=== PATIENT | female | born 1975 | race Caucasian/White ===

== ENCOUNTER 2016-04-10 16:10 | Emergency (ER) | payer SELFPAY ==
[2016-04-10] MEDS ORDERED: HYDROCODONE/ACETAMINOPHEN 5-325 MG TABLET PO ONE (16:26)
--- NOTE | 2016-04-10 16:26 | ER Document Report ---
ED Medical Screen (RME) - General Stated Complaint: SHOULDER INJURY Mode of Arrival: Wheelchair Information source: Patient Notes: Patient reports that a chicken coop fell on her hitting her chest and then her feet. hx: Arthritis I have greeted and performed a rapid initial assessment of this patient. A comprehensive ED assessment and evaluation of the patient, analysis of test results and completion of the medical decision making process will be conducted by additional ED providers. - Related Data Allergies/Adverse Reactions: NSAIDS (Non-Steroidal Anti-Inflamma Allergy (Verified 04/10/16 16:23) Physical Exam - Skin Location of irregularity: Other - Abrasion to left clavicle Irregularity with: Tenderness
--- NOTE | 2016-04-10 19:24 | ER Document Report ---
HPI - HPI Patient complains to provider of: left clavical and Foot pain Onset: This morning Severity: Severe Pain Level: 5 Context: Patient presents with complaints of left clavicle and left foot pain after chicken cooked fell on her. She denies change in LOC. She complains of pain with touch and movement. Associated Symptoms: None Exacerbated by: Movement Relieved by: Denies Similar symptoms previously: No Recently seen / treated by doctor: No - DERM Skin Color: Normal Past Medical History - General Information source: Patient - Social History Smoking Status: Current Every Day Smoker Chew tobacco use (# tins/day): No Frequency of alcohol use: None Drug Abuse: None Lives with: Family Family History: None Patient has suicidal ideation: No Patient has homicidal ideation: No - Medical History Medical History: Negative Renal/ Medical History: Denies: Hx Peritoneal Dialysis Surgical Hx: Negative Vertical Provider Document - CONSTITUTIONAL Agree With Documented VS: Yes Exam Limitations: No Limitations General Appearance: WD/WN, Mild Distress - Winces when moving left shoulder - INFECTION CONTROL TRAVEL OUTSIDE OF THE [place] IN LAST 30 DAYS: No - HEENT HEENT: Atraumatic, Normocephalic - NECK Neck: Normal Inspection, Supple. negative: Lymphadenopathy-Left, Lymphadenopathy-Right - RESPIRATORY Respiratory: Breath Sounds Normal, No Respiratory Distress, Other - Left clavicle area with abrasion. Tender to palpation no obvious deformity. No open wounds O2 Sat by Pulse Oximetry: 98 - CARDIOVASCULAR Cardiovascular: Regular Rate - GI/ABDOMEN Gastrointestinal: Abdomen Soft, Abdomen Non-Tender - MUSCULOSKELETAL/EXTREMETIES Musculoskeletal/Extremeties: MAEW, FROM, Tender - Left foot dorsal tender to palpation no ecchymosis no swelling no obvious deformity good pedal pulse - NEURO Level of Consciousness: Awake, Alert, Appropriate Motor/Sensory: No Motor Deficit - DERM Integumentary: Warm, Dry Adult Front & Back Diagram: 1 - Abrasion complains of pain 2 - Complaints of pain no obvious deformity no swelling no erythema no ecchymosis good pedal pulse Course - Re-evaluation Re-evalutation: 04/10/16 Patient instructed on plan of care. Plan to give her [place] [employer] and patient requests Percocet prescription. Patient also instructed on at rest ice monitor the site for signs of infection. She verbalized understanding to all instructions. - Vital Signs Vital signs: Temp Pulse Resp BP Pulse Ox 98.2 F 68 20 128/72 H 98 04/10/16 16:25 04/10/16 16:25 04/10/16 16:25 04/10/16 16:25 04/10/16 16:25 - Diagnostic Test Radiology reviewed: Image reviewed, Reports reviewed - IMPRESSION: NEGATIVE STUDY OF THE LEFT CLAVICLE. NO RADIOGRAPHIC EVIDENCE OF ACUTE INJURY IMPRESSION : NEGATIVE STUDY OF THE RIGHT AND LEFT FEET. NO RADIOGRAPHIC EVIDENCE OF ACUTE INJURY. Discharge - Discharge Clinical Impression: Elevated blood pressure reading Contusion of left clavicle Qualifiers: Encounter type: initial encounter Qualified Code(s): S40.012A - Contusion of left shoulder, initial encounter Contusion of left foot Qualifiers: Encounter type: initial encounter Qualified Code(s): S90.32XA - Contusion of left foot, initial encounter Condition: Stable Disposition: HOME, SELF-CARE Instructions: Contusion ([facility]), Oral Narcotic Medication ([facility]) Additional Instructions: *You have been evaluated for left clavicle pain and foot pain *Monitor your blood pressure. Your blood pressure was elevated today. This may be because you were anxious, in pain or because you need medication. It is important to follow up with your primary care provider for full evaluation. *Rest/Ice/Elevate *Follow up with a primary care provider this week for recheck *Take medication as prescribed *Return to ED for worsening condition, changes, needs Prescriptions: Oxycodone HCl/Acetaminophen [Percocet 5-325 mg Tablet] 1 tab PO ASDIR PRN #10 tablet PRN Reason: Forms: Elevated Blood Pressure
[2016-04-10 19:55] VITALS: BP 122/68
== END 2016-04-10 19:56 | disposition home or self-care (01) ==
LOC: ER 16:10
DX: S40.012A Contusion of left shoulder, initial encounter (principal); S90.32XA Contusion of left foot, initial encounter; R03.0 Elevated blood-pressure reading, without diagnosis of hypertension; F17.200 Nicotine dependence, unspecified, uncomplicated; W20.8XXA Other cause of strike by thrown, projected or falling object, initial encounter
CPT/HCPCS: 99283

== ENCOUNTER 2016-06-25 14:48 | Emergency (ER) | payer MEDICAID ==
[2016-06-25 15:08] VITALS: BP 147/79
[2016-06-25] MEDS ORDERED: NORMAL SALINE 500 ML IV ONE (16:26)
--- NOTE | 2016-06-25 16:33 | ER Document Report ---
ED General - General Mode of Arrival: Medic Information source: Patient TRAVEL OUTSIDE OF THE [place] IN LAST 30 DAYS: No - HPI Patient complains to provider of: Multiple Complaints Onset: Other - 1 Week Ago Onset/Duration: Gradual, Worse Associated symptoms: Other - See Narrative <DIVYA DHILLON - Last Filed: 06/25/16 16:26> <JARAD MEREDITH - Last Filed: 06/25/16 18:47> - General Chief Complaint: Other Stated Complaint: NO BOWEL MOVEMENT Notes: Patient is a 41-year-old female presenting to the emergency department for several chief complaints including her "bones feel hollow" and "blood is burning.". Patient states that she has been sick for years, and she is weaning off of her Oxycodone 80mg daily and Xanax , now she is taking Oxycodone 10 mg 3 times daily. Patient was recently started on clonazepam to replace her Xanax. Patient complains of pressure behind her eyes and that she feels like she is losing her vision. She also states that she's been having blackouts, memory loss, shaking, "neck stretching" like her head is being suctioned up, and she states that her brain shuts off when she eats and drinks. Patient states that she cannot have Suboxone because she has real medical issues. Patient also states "I am fighting every demon because God put plants on this Earth for us." And "OOh! my blood is burning! I think my blood pressure must be rising!" (DIVYA DHILLON) - Related Data Allergies/Adverse Reactions: NSAIDS (Non-Steroidal Anti-Inflamma Allergy (Verified 06/25/16 14:57) Past Medical History - General Information source: Patient - Social History Smoking Status: Current Every Day Smoker Chew tobacco use (# tins/day): No Frequency of alcohol use: None Drug Abuse: None Family History: Reviewed & Not Pertinent Pulmonary Medical History: Reports: Hx COPD Renal/ Medical History: Denies: Hx Peritoneal Dialysis Past Surgical History: Reports: Hx Hysterectomy <DIVYA DHILLON - Last Filed: 06/25/16 16:26> Review of Systems - Review of Systems Constitutional: See HPI, Malaise, Other - Shaky EENT: See HPI, Eye pain, Blurred vision Cardiovascular: See HPI, Lightheaded Respiratory: No symptoms reported Gastrointestinal: See HPI, Constipation, Poor appetite, Poor fluid intake Genitourinary: No symptoms reported Female Genitourinary: No symptoms reported Musculoskeletal: See HPI, Other - "Neck Stretching" Skin: No symptoms reported Hematologic/Lymphatic: See HPI, Other - "Blood Burning" Neurological/Psychological: See HPI, Other - Memory loss -: Yes All other systems reviewed and negative <DIVYA DHILLON - Last Filed: 06/25/16 16:26> Course <DIVYA DHILLON - Last Filed: 06/25/16 16:26> - Laboratory Result Diagrams: 06/25/16 15:15 06/25/16 15:15 <JARAD MEREDITH - Last Filed: 06/25/16 18:47> - Re-evaluation Re-evalutation: 06/25/16 18:38 I spent a long time discussing results per normal and abnormal with the patient. She understands she must follow-up regarding the hematuria. She is concerned about some of the swallowing discomfort she has had so I recommended she see her PCP to get ENT referral for nasopharyngoscopy. I suspect her coming down off her medications from such a large amount of narcotics and benzos this caused her some withdrawal-type symptoms. I have asked her to talk with her doctor regarding this. 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 To prevent further withdrawal issues or withdrawal seizures, I will prescribe enough to get her through to Monday. (JARAD MEREDITH) - Vital Signs Vital signs: Temp Pulse Resp BP Pulse Ox 99.0 F 97 20 147/79 H 99 06/25/16 14:51 06/25/16 14:51 06/25/16 14:51 06/25/16 14:51 06/25/16 14:51 - Laboratory Laboratory results interpreted by me: 06/25/16 06/25/16 06/25/16 15:15 15:15 15:15 WBC 14.3 H RBC 5.97 H Hgb 18.0 H Hct 53.8 H Absolute Neutrophils 10.1 H Magnesium 2.4 H Urine Blood MODERATE H Discharge <DIVYA DHILLON - Last Filed: 06/25/16 16:26> <JARAD MEREDITH - Last Filed: 06/25/16 18:47> - Discharge Clinical Impression: Headache, Generalized pain, Odynophagia Condition: Good Disposition: HOME, SELF-CARE Additional Instructions: Return for emergency or concern. Prescriptions: Clonazepam [Klonopin 1 mg Tablet] 1 mg PO TID PRN #5 tablet PRN Reason: Anxiety Forms: Elevated Blood Pressure, Smoking Cessation Education Referrals: STEFANY MOSQUERA MD [Primary Care Provider] - 06/27/16 Scribe Attestation: 06/25/16 18:46 I personally performed the services described in the documentation, reviewed and edited the documentation which was dictated to the scribe in my presence, and it accurately records my words and actions. (JARAD MEREDITH) Scribe Documentation - Scribe Written by Helga:: Divya Dhillon 06/25/2016 1626 acting as scribe for :: Ron <DIVYA DHILLON - Last Filed: 06/25/16 16:26>
[2016-06-25 16:57] LABS: APPEARANCE,URINE CLEAR; BILIRUBIN,URINE NEGATIVE (NEGATIVE); GLUCOSE, URINE NEGATIVE (NEGATIVE); KETONES,URINE NEGATIVE (NEGATIVE); LEUKOCYTE ESTERASE,URINE NEGATIVE (NEGATIVE); NITRITE,URINE NEGATIVE (NEGATIVE); PROTEIN,URINE NEGATIVE (NEGATIVE); URINE SPECIFIC GRAVITY 1.005; UROBILINOGEN,URINE NEGATIVE mg/dL (<2.0)
[2016-06-25 17:09] LABS: URINE BARBITURATES SCREEN NEGATIVE; URINE METHADONE SCREEN NEGATIVE; URINE OPIATES LOW NEGATIVE; URINE PHENCYCLIDINE SCREEN NEGATIVE
[2016-06-25 17:23] LABS: ABSOLUTE BASOPHILS # (AUTO) 0.1 10^3/uL (0.0-0.2); ABSOLUTE EOSINOPHILS # (AUTO) 0.1 10^3/uL (0.0-0.6); ABSOLUTE NEUT (AUTO) 10.1 10^3/uL (1.7-8.2); BASOPHILS % (AUTO) 0.5 % (0-2); HEMATOCRIT 53.8 % (36.0-47.0); HGB HCT DIFFERENCE 0.2; MEAN CORPUSCULAR HEMOGLOBIN 30.1 pg (27.0-33.4); MEAN CORPUSCULAR HGB CONC 33.4 g/dL (32.0-36.0); MEAN CORPUSCULAR VOLUME 90 fl (80-97); MONOCYTES % (AUTO) 7.1 % (3-13); RED BLOOD COUNT 5.97 10^6/uL (3.72-5.28); RED CELL DISTRIBUTION WIDTH 13.3 % (11.5-14.0); SEGMENTED NEUTROPHILS % (AUTO) 70.4 % (42-78); WHITE BLOOD COUNT 14.3 10^3/uL (4.0-10.5)
[2016-06-25 17:29] LABS: ALANINE AMINOTRANSFERASE 32 U/L (9-52); ALBUMIN 4.7 g/dL (3.5-5.0); ALKALINE PHOSPHATASE 89 U/L (38-126); ANION GAP 16 (5-19); ASPARTATE AMINO TRANSFERASE 22 U/L (14-36); BILIRUBIN,TOTAL 0.6 mg/dL (0.2-1.3); BLOOD UREA NITROGEN 11 mg/dL (7-20); CALCIUM 9.7 mg/dL (8.4-10.2); CARBON DIOXIDE 25 mmol/L (22-30); CHLORIDE 101 mmol/L (98-107); CREATININE RESULT 0.87 mg/dL (0.52-1.25); GLUCOSE 90 mg/dL (75-110); POTASSIUM 4.6 mmol/L (3.6-5.0); SODIUM 141.7 mmol/L (137-145)
[2016-06-25 17:30] LABS: BILIRUBIN,DIRECT 0.3 mg/dL (0.0-0.4); CREATINE KINASE 47 U/L (30-135); MAGNESIUM 2.4 mg/dL (1.6-2.3); TOTAL PROTEIN 7.7 g/dL (6.3-8.2)
[2016-06-25] MEDS ORDERED: OXYCODONE-ACETAMINOPHEN 5-325 MG TABLET PO ONE (18:34)
--- NOTE | 2016-06-26 17:01 | EKG REPORT ---
SEVERITY:- OTHERWISE NORMAL ECG - SINUS RHYTHM BORDERLINE LEFT AXIS DEVIATION : Confirmed by: Stephany Marc MD 26-Jun-2016 17:00:43
== END 2016-06-25 18:40 | disposition home or self-care (01) ==
LOC: ER 14:48
DX: R51 Headache (principal); R52 Pain, unspecified; R13.10 Dysphagia, unspecified; Z79.899 Other long term (current) drug therapy; F17.200 Nicotine dependence, unspecified, uncomplicated
CPT/HCPCS: 93005; 99284; 96360; 36415; 82550; 83735; 84443; 85025; 81025; 80053; 81001; 84484; 80307; 71020; 70450; 93010; J7040

== ENCOUNTER 2016-11-23 15:35 | Emergency (ER) | payer SELFPAY ==
[2016-11-23] MEDS ORDERED: OXYCODONE-ACETAMINOPHEN 5-325 MG TABLET PO ONE (18:20)
[2016-11-23 18:32] LABS: ABSOLUTE BASOPHILS # (AUTO) 0.1 10^3/uL (0.0-0.2); ABSOLUTE EOSINOPHILS # (AUTO) 0.1 10^3/uL (0.0-0.6); ABSOLUTE LYMPHOCYTES (AUTO) 3.3 10^3/uL (0.5-4.7); ABSOLUTE MONOCYTES (AUTO) 1.2 10^3/uL (0.1-1.4); ABSOLUTE NEUT (AUTO) 8.9 10^3/uL (1.7-8.2); BASOPHILS % (AUTO) 0.5 % (0-2); EOSINOPHILS % (AUTO) 0.5 % (0-6); HEMATOCRIT 51.4 % (36.0-47.0); HEMOGLOBIN 17.9 g/dL (12.0-15.5); HGB HCT DIFFERENCE 2.3; LYMPHOCYTES % (AUTO) 24.6 % (13-45); MEAN CORPUSCULAR HEMOGLOBIN 31.2 pg (27.0-33.4); MEAN CORPUSCULAR HGB CONC 34.8 g/dL (32.0-36.0); MEAN CORPUSCULAR VOLUME 90 fl (80-97); MONOCYTES % (AUTO) 8.5 % (3-13); RED BLOOD COUNT 5.72 10^6/uL (3.72-5.28); RED CELL DISTRIBUTION WIDTH 13.4 % (11.5-14.0); SEGMENTED NEUTROPHILS % (AUTO) 65.9 % (42-78); WHITE BLOOD COUNT 13.5 10^3/uL (4.0-10.5)
[2016-11-23 18:43] LABS: APPEARANCE,URINE CLEAR; BILIRUBIN,URINE NEGATIVE (NEGATIVE); GLUCOSE, URINE NEGATIVE (NEGATIVE); KETONES,URINE NEGATIVE (NEGATIVE); LEUKOCYTE ESTERASE,URINE NEGATIVE (NEGATIVE); NITRITE,URINE NEGATIVE (NEGATIVE); PROTEIN,URINE NEGATIVE (NEGATIVE); URINE SPECIFIC GRAVITY 1.004; UROBILINOGEN,URINE NEGATIVE mg/dL (<2.0)
[2016-11-23 18:45] LABS: ALANINE AMINOTRANSFERASE 31 U/L (9-52); ALBUMIN 4.6 g/dL (3.5-5.0); ALKALINE PHOSPHATASE 80 U/L (38-126); ANION GAP 12 (5-19); ASPARTATE AMINO TRANSFERASE 17 U/L (14-36); BILIRUBIN,DIRECT 0.4 mg/dL (0.0-0.4); BILIRUBIN,TOTAL 0.7 mg/dL (0.2-1.3); BLOOD UREA NITROGEN 11 mg/dL (7-20); CALCIUM 9.9 mg/dL (8.4-10.2); CARBON DIOXIDE 28 mmol/L (22-30); CHLORIDE 98 mmol/L (98-107); CREATININE RESULT 0.69 mg/dL (0.52-1.25); GLUCOSE 77 mg/dL (75-110); POTASSIUM 4.2 mmol/L (3.6-5.0); SODIUM 138.3 mmol/L (137-145); TOTAL PROTEIN 7.6 g/dL (6.3-8.2)
--- NOTE | 2016-11-23 18:55 | ER Document Report ---
ED General - General Chief Complaint: Neck Pain >24hrs old Stated Complaint: NECK PAIN Time Seen by Provider: 11/23/16 17:40 Mode of Arrival: Ambulatory Information source: Patient Notes: Patient has multiple complaints. She complains of not feeling well as well as feeling weak. She also complains of left neck pain. She complains of abdominal pain. She also has nausea. She also states that her eyes are dry. She states the symptoms have been constant. Nothing appears to make them better or worse. No known radiation of the symptoms. Symptoms of been severe. She states she has had several tick bites but cannot tell me when the last one was. TRAVEL OUTSIDE OF THE [place] IN LAST 30 DAYS: No - Related Data Allergies/Adverse Reactions: NSAIDS (Non-Steroidal Anti-Inflamma Allergy (Verified 06/25/16 14:57) Past Medical History - Social History Smoking Status: Current Every Day Smoker Frequency of alcohol use: None Drug Abuse: None Family History: Reviewed & Not Pertinent Pulmonary Medical History: Reports: Hx COPD Renal/ Medical History: Denies: Hx Peritoneal Dialysis Past Surgical History: Reports: Hx Hysterectomy, Hx Orthopedic Surgery - right arm fracture Review of Systems - Review of Systems Constitutional: Chills, Fever, Malaise, Weakness Cardiovascular: Chest pain, Palpitations Respiratory: Cough Gastrointestinal: Abdominal pain, Nausea -: Yes All other systems reviewed and negative Physical Exam - Vital signs Vitals: Temp Pulse Resp BP Pulse Ox 98.4 F 91 12 141/91 H 98 11/23/16 15:37 11/23/16 15:37 11/23/16 15:37 11/23/16 15:37 11/23/16 15:37 Interpretation: Normal - General General appearance: Appears well, Alert - HEENT Head: Normocephalic, Atraumatic Eyes: Normal Pupils: PERRL - Respiratory Respiratory status: No respiratory distress Chest status: Nontender Breath sounds: Normal Chest palpation: Normal - Cardiovascular Rhythm: Regular Heart sounds: Normal auscultation Murmur: No - Abdominal Inspection: Normal Distension: No distension Bowel sounds: Normal Tenderness: Nontender Organomegaly: No organomegaly - Back Back: Normal, Nontender - Extremities General upper extremity: Normal inspection, Nontender, Normal color, Normal ROM , Normal temperature General lower extremity: Normal inspection, Nontender, Normal color, Normal ROM , Normal temperature, Normal weight bearing. No: Sindi's sign - Neurological Neuro grossly intact: Yes Cognition: Normal Orientation: AAOx4 [place] Coma Scale Eye Opening: Spontaneous [place] Coma Scale Verbal: Oriented [place] Coma Scale Motor: Obeys Commands [place] Coma Scale Total: 15 Speech: Normal Motor strength normal: LUE, RUE, LLE, RLE Sensory: Normal - Psychological Associated symptoms: Normal affect, Normal mood - Skin Skin Temperature: Warm Skin Moisture: Dry Skin Color: Normal Course - Vital Signs Vital signs: Temp Pulse Resp BP Pulse Ox 98.4 F 91 12 141/91 H 98 11/23/16 15:37 11/23/16 15:37 11/23/16 15:37 11/23/16 15:37 11/23/16 15:37 - Laboratory Result Diagrams: 11/23/16 18:04 11/23/16 18:04 Laboratory results interpreted by me: 11/23/16 11/23/16 18:04 18:04 WBC 13.5 H RBC 5.72 H Hgb 17.9 H Hct 51.4 H Absolute Neutrophils 8.9 H Urine Blood MODERATE H Discharge - Discharge Clinical Impression: Weakness Condition: Stable Disposition: HOME, SELF-CARE Instructions: Weakness ([facility]) Additional Instructions: Please contact your primary doctor as soon as possible to arrange follow-up Prescriptions: Doxycycline Hyclate 100 mg PO BID #14 capsule Hydrocodone/Acetaminophen [Clive 5-325 mg Tablet] 1 tab PO Q6 PRN #12 tablet PRN Reason:
[2016-11-23 19:39] VITALS: BP 143/85
== END 2016-11-23 19:51 | disposition home or self-care (01) ==
LOC: ER 15:35
DX: R53.1 Weakness (principal); M54.2 Cervicalgia; R10.9 Unspecified abdominal pain; R11.0 Nausea; F17.200 Nicotine dependence, unspecified, uncomplicated
CPT/HCPCS: 36415; 80053; 81001; 85025; 99283

== ENCOUNTER 2016-12-07 18:26 | Emergency (ER) | payer OTHER ==
[2016-12-07 18:37] VITALS: BP 129/96
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
[2016-12-07] MEDS ORDERED: OXYCODONE-ACETAMINOPHEN 5-325 MG TABLET PO ONE (19:47)
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
== END 2016-12-07 19:50 | disposition home or self-care (01) ==
LOC: ER 18:26
DX: S16.1XXA Strain of muscle, fascia and tendon at neck level, initial encounter (principal); V49.10XA Passenger injured in collision with unspecified motor vehicles in nontraffic accident, initial encounter; Y92.481 Parking lot as the place of occurrence of the external cause; F41.9 Anxiety disorder, unspecified; A69.20 Lyme disease, unspecified; J44.9 Chronic obstructive pulmonary disease, unspecified; F17.200 Nicotine dependence, unspecified, uncomplicated; Z88.8 Allergy status to other drugs, medicaments and biological substances; Z79.899 Other long term (current) drug therapy
CPT/HCPCS: 72050; 99283

== ENCOUNTER 2017-03-18 18:24 | Emergency (ER) | payer SELFPAY ==
[2017-03-18 18:50] VITALS: BP 120/68
--- NOTE | 2017-03-18 19:14 | ER Document Report ---
ED Medical Screen (RME) - General Chief Complaint: Pain All Over Stated Complaint: NECK PAIN,CHILLS,BODY PAIN Time Seen by Provider: 03/18/17 19:07 Mode of Arrival: Wheelchair Information source: Patient - pt TRAVEL OUTSIDE OF THE [place] IN LAST 30 DAYS: No - HPI Patient complains to provider of: MOSES, neck pain Onset: Other - Pt. with c/o MOSES, neck pain, generalized "bone pain" and multiple other c/o. - Related Data Allergies/Adverse Reactions: NSAIDS (Non-Steroidal Anti-Inflamma Allergy (Verified 03/18/17 19:00) Home Medications: Current Home Medications Oxycodone HCl/Acetaminophen [Percocet 5-325 mg Tablet] 1 tab PO QID 03/18/17 [ History] Past Medical History - Social History Chew tobacco use (# tins/day): No Frequency of alcohol use: None Drug Abuse: None Pulmonary Medical History: Reports: Hx COPD Renal/ Medical History: Denies: Hx Peritoneal Dialysis Past Surgical History: Reports: Hx Hysterectomy, Hx Orthopedic Surgery - right arm fracture Physical Exam - Vital signs Vitals: Temp Pulse Resp BP Pulse Ox 98.2 F 83 18 120/68 99 03/18/17 18:48 03/18/17 18:48 03/18/17 18:48 03/18/17 18:48 03/18/17 18:48 Course - Vital Signs Vital signs: Temp Pulse Resp BP Pulse Ox 98.2 F 83 18 120/68 99 03/18/17 18:48 03/18/17 18:48 03/18/17 18:48 03/18/17 18:48 03/18/17 18:48
[2017-03-18 19:59] LABS: ABSOLUTE BASOPHILS # (AUTO) 0.1 10^3/uL (0.0-0.2); ABSOLUTE EOSINOPHILS # (AUTO) 0.1 10^3/uL (0.0-0.6); ABSOLUTE LYMPHOCYTES (AUTO) 2.5 10^3/uL (0.5-4.7); ABSOLUTE MONOCYTES (AUTO) 0.8 10^3/uL (0.1-1.4); ABSOLUTE NEUT (AUTO) 7.1 10^3/uL (1.7-8.2); BASOPHILS % (AUTO) 0.7 % (0-2); EOSINOPHILS % (AUTO) 0.6 % (0-6); HEMATOCRIT 51.7 % (36.0-47.0); HEMOGLOBIN 17.6 g/dL (12.0-15.5); LYMPHOCYTES % (AUTO) 23.9 % (13-45); MEAN CORPUSCULAR HEMOGLOBIN 30.7 pg (27.0-33.4); MEAN CORPUSCULAR HGB CONC 34.1 g/dL (32.0-36.0); MEAN CORPUSCULAR VOLUME 90 fl (80-97); MONOCYTES % (AUTO) 7.2 % (3-13); PLATELET COUNT 240 10^3/uL (150-450); RED BLOOD COUNT 5.74 10^6/uL (3.72-5.28); RED CELL DISTRIBUTION WIDTH 13.4 % (11.5-14.0); SEGMENTED NEUTROPHILS % (AUTO) 67.6 % (42-78); TOTAL CELLS COUNTED % (AUTO) 100 %; WHITE BLOOD COUNT 10.4 10^3/uL (4.0-10.5)
--- NOTE | 2017-03-18 20:11 | RADIOLOGY REPORT (SQ) ---
EXAM DESCRIPTION: CT HEAD WITHOUT COMPLETED DATE/TIME: 03/18/2017 8:02 pm REASON FOR STUDY: headache COMPARISON: None. TECHNIQUE: Axial images acquired through the brain without intravenous contrast. Images reviewed wi th bone, brain and subdural windows. Images stored on PACS. All CT scanners at this facility use dose modulation, iterative reconstruction, and/or weight based d osing when appropriate to reduce radiation dose to as low as reasonably achievable (ALARA). [facility]: Dose Right [facility]: CareDose [facility]: Dose Right [facility]: Teradose 4D [facility]: Crossbar RADIATION DOSE: CT Rad equipment meets quality standard of care and radiation dose reduction techniq ues were employed. CTDIvol: 64.6 mGy. DLP: 1163 mGy-cm. mGy. LIMITATIONS: None. FINDINGS: VENTRICLES: Normal size and contour. CEREBRUM: No masses. No hemorrhage. No midline shift. No evidence for acute infarction. Normal gra y/white matter differentiation. No areas of low density in the white matter. CEREBELLUM: No masses. No hemorrhage. No alteration of density. No evidence for acute infarction. EXTRAAXIAL SPACES: No fluid collections. No masses. ORBITS AND GLOBE: No intra- or extraconal masses. Normal contour of globe without masses. CALVARIUM: No fracture. PARANASAL SINUSES: No fluid or mucosal thickening. SOFT TISSUES: No mass or hematoma. OTHER: No other significant finding. IMPRESSION: NORMAL BRAIN CT WITHOUT CONTRAST. EVIDENCE OF ACUTE STROKE: NO. COMMENT: Quality ID # [id number]: Final reports with documentation of one or more dose reduction techniques (e.g., Automated exposure control, adjustment of the mA and/or kV according to patient size, use of iterative reconstruction technique) TECHNICAL DOCUMENTATION: JOB ID: [id number] [employer]- All Rights Reserved
--- NOTE | 2017-03-18 20:12 | RADIOLOGY REPORT (SQ) ---
EXAM DESCRIPTION: CT CERVICAL SPINE WITHOUT COMPLETED DATE/TIME: 03/18/2017 8:02 pm REASON FOR STUDY: headache COMPARISON: None. TECHNIQUE: Axial images acquired through the cervical spine without intravenous contrast. Images re viewed with lung, soft tissue and bone windows. Reconstructed coronal and sagittal MPR images review ed. Images stored on PACS. All CT scanners at this facility use dose modulation, iterative reconstruction, and/or weight based d osing when appropriate to reduce radiation dose to as low as reasonably achievable (ALARA). [facility]: Dose Right [facility]: CareDose [facility]: Dose Right [facility]: Teradose 4D [facility]: Smart [place]ils RADIATION DOSE: CT Rad equipment meets quality standard of care and radiation dose reduction techniq ues were employed. CTDIvol: 19.2 mGy. DLP: 491 mGy-cm. mGy. LIMITATIONS: None. FINDINGS: ALIGNMENT: Anatomic. MINERALIZATION: Normal. VERTEBRAL BODIES: No fractures or dislocation. DISCS: No significant disc disease. FACETS, LATERAL MASSES, POSTERIOR ELEMENTS: No fractures. No dislocation. No acute findings. HARDWARE: None in the spine. VISUALIZED RIBS: No fractures. LUNG APICES AND SOFT TISSUES: No significant or acute findings. OTHER: No other significant finding. IMPRESSION: NO ACUTE OR SIGNIFICANT FINDINGS IN THE CERVICAL SPINE. TECHNICAL DOCUMENTATION: JOB ID: [id number] Quality ID # [id number]: Final reports with documentation of one or more dose reduction techniques (e.g., Au tomated exposure control, adjustment of the mA and/or kV according to patient size, use of iterative reconstruction technique) 2010 [employer]- All Rights Reserved
[2017-03-18 20:20] LABS: APPEARANCE,URINE CLEAR; BILIRUBIN,URINE NEGATIVE (NEGATIVE); COLOR,URINE STRAW; GLUCOSE, URINE NEGATIVE (NEGATIVE); KETONES,URINE NEGATIVE (NEGATIVE); LEUKOCYTE ESTERASE,URINE NEGATIVE (NEGATIVE); NITRITE,URINE NEGATIVE (NEGATIVE); PROTEIN,URINE NEGATIVE (NEGATIVE); URINE SPECIFIC GRAVITY 1.003; UROBILINOGEN,URINE NEGATIVE mg/dL (<2.0)
[2017-03-18 20:25] LABS: ALANINE AMINOTRANSFERASE 31 U/L (9-52); ALBUMIN 4.2 g/dL (3.5-5.0); ALKALINE PHOSPHATASE 62 U/L (38-126); ANION GAP 13 (5-19); ASPARTATE AMINO TRANSFERASE 20 U/L (14-36); BILIRUBIN,DIRECT 0.2 mg/dL (0.0-0.4); BILIRUBIN,TOTAL 0.7 mg/dL (0.2-1.3); BLOOD UREA NITROGEN 10 mg/dL (7-20); CALCIUM 10.1 mg/dL (8.4-10.2); CARBON DIOXIDE 26 mmol/L (22-30); CHLORIDE 104 mmol/L (98-107); GLUCOSE 91 mg/dL (75-110); POTASSIUM 4.3 mmol/L (3.6-5.0); SODIUM 142.5 mmol/L (137-145); TOTAL PROTEIN 7.2 g/dL (6.3-8.2)
[2017-03-18 20:35] LABS: URINE AMPHETAMINES SCREEN NEGATIVE; URINE BARBITURATES SCREEN NEGATIVE; URINE BENZODIAZEPINES SCREEN UNCONFIRMED POSITIVE; URINE COCAINE SCREEN NEGATIVE; URINE MARIJUANA (THC) SCREEN UNCONFIRMED POSITIVE; URINE METHADONE SCREEN NEGATIVE; URINE PHENCYCLIDINE SCREEN NEGATIVE
--- NOTE | 2017-03-18 21:39 | ER Document Report ---
ED General - General Chief Complaint: Pain All Over Stated Complaint: NECK PAIN,CHILLS,BODY PAIN Time Seen by Provider: 03/18/17 19:07 Mode of Arrival: Wheelchair Notes: 41-year-old lady with a history of diagnosed chronic Lyme disease presents with multiple complaints. Her first complaint is actually that no doctor is actually sat and listened to her. She has been having pain in her neck back all extremities achiness nausea fatigue for months. She is thinking about changing primary care doctors because she does not think they are listening to her. Today she is complaining of back and neck pain and headache primarily. She denies fevers and chills. Prior to my evaluation the patient was seen at triage, labs and a CT of her head and cervical spine were ordered. Patient has been seen by her primary care doctor. She just wants answers. TRAVEL OUTSIDE OF THE [place] IN LAST 30 DAYS: No - Related Data Allergies/Adverse Reactions: NSAIDS (Non-Steroidal Anti-Inflamma Allergy (Verified 03/18/17 19:00) Home Medications: Current Home Medications Oxycodone HCl/Acetaminophen [Percocet 5-325 mg Tablet] 1 tab PO QID 03/18/17 [ History] Past Medical History - General Information source: Patient - pt - Social History Smoking Status: Current Every Day Smoker Chew tobacco use (# tins/day): No Frequency of alcohol use: None Drug Abuse: None Family History: Reviewed & Not Pertinent Patient has suicidal ideation: No Patient has homicidal ideation: No Pulmonary Medical History: Reports: Hx COPD Renal/ Medical History: Denies: Hx Peritoneal Dialysis Past Surgical History: Reports: Hx Hysterectomy, Hx Orthopedic Surgery - right arm fracture Review of Systems - Review of Systems Notes: REVIEW OF SYSTEMS GEN: Fatigue ENT: Denies sore throat, nasal discharge, ear pain EYES: Denies blurry vision, eye pain, discharge CV: Denies chest pain, palpitations, edema RESP: Denies cough, shortness of breath, wheezing GI: Denies abdominal pain, nausea, vomiting, diarrhea MSK: Denies joint pain/swelling, edema, SKIN: Denies rash, skin lesions LYMPH: Denies swollen glands/lymph nodes NEURO: Denies headache, focal weakness or numbness, dizziness PSYCH: Denies depression, suicidal or homicidal ideation PHYSICAL EXAMINATION General: No acute distress, well-nourished Head: Atraumatic, normocephalic ENT: Mouth normal, oropharynx moist, no exudates or tonsillar enlargement Eyes: Conjunctiva normal, pupils equal, lids normal Neck: No JVD, supple, no guarding CVS: Normal rate, regular rhythm, no murmurs Resp: No resp distress, equal and normal breath sounds bilaterally GI: Nondistended, soft, no tenderness to palpation, no rebound or guarding Ext: No deformities, no edema, normal range of motion in upper and lower ext Back: No CVA or midline TTP Skin: No rash, warm Lymphatic: No lymphadeopathy noted Neuro: Awake, alert. Face symmetric. GCS 15. Physical Exam - Vital signs Vitals: Temp Pulse Resp BP Pulse Ox 98.2 F 83 18 120/68 99 03/18/17 18:48 03/18/17 18:48 03/18/17 18:48 03/18/17 18:48 03/18/17 18:48 Course - Re-evaluation Re-evalutation: 03/18/17 22:03 Patient presents with chronic muscular pain headache and neck pain with neck popping. Her neck is supple with no tenderness, her neurologic exam is normal. Her differential is long but I do not think there is any acute process going on such as electrolyte abnormalities stroke or meningitis. Her CTs are negative. Her labs are normal except for hemoconcentration. I explained to her that she needs further testing but I do not think he needs to be done tonight. She was requesting pain meds and I offered her Tylenol or Motrin and she refused. She has a primary. She will follow-up there. I have discussed with the patient there likely diagnosis, aftercare plan, follow-up plans and my usual and customary return precautions. They verbalized understanding of this. - Vital Signs Vital signs: Temp Pulse Resp BP Pulse Ox 98.2 F 83 18 120/68 99 03/18/17 18:48 03/18/17 18:48 03/18/17 18:48 03/18/17 18:48 03/18/17 18:48 - Laboratory Result Diagrams: 03/18/17 19:46 03/18/17 19:46 Laboratory results interpreted by me: 03/18/17 03/18/17 19:46 19:46 RBC 5.74 H Hgb 17.6 H Hct 51.7 H Urine Blood SMALL H - Diagnostic Test Radiology reviewed: Image reviewed, Reports reviewed Discharge - Discharge Clinical Impression: Musculoskeletal pain Condition: Good Disposition: HOME, SELF-CARE Additional Instructions: We did not find a cause of your neck back and total body pain. Your lab testing , CT of the brain and cervical spine were all normal today.
== END 2017-03-18 22:40 | disposition home or self-care (01) ==
LOC: ER 18:24
DX: M79.1 Myalgia (principal); M54.2 Cervicalgia; G89.29 Other chronic pain; R51 Headache; M54.9 Dorsalgia, unspecified; J44.9 Chronic obstructive pulmonary disease, unspecified; F17.200 Nicotine dependence, unspecified, uncomplicated; Z86.19 Personal history of other infectious and parasitic diseases; Z88.8 Allergy status to other drugs, medicaments and biological substances
CPT/HCPCS: 36415; 70450; 72125; 80053; 80307; 81001; 81025; 85025; 99284

== ENCOUNTER 2017-04-21 15:04 | Emergency (ER) | payer SELFPAY ==
[2017-04-21] MEDS ORDERED: NORMAL SALINE 1000 ML 1,000 ML IV ONE (16:07)
--- NOTE | 2017-04-21 16:14 | ER Document Report ---
HPI - HPI Patient complains to provider of: Multiple complaints Onset: Other - 6 years Onset/Duration: Persistent Quality of pain: Achy, Burning Pain Level: 1 Context: Patient presents with multiple complaints. Patient complains of generalized body aches, sore throat with neck discomfort. Patient states occasionally she will feel like she blacks out or that her blood is burning her. Patient states that she has been seen for this in the past but does not currently have insurance and is unable to follow-up with anybody. Patient denies any fever. Patient denies any nausea vomiting or diarrhea. Associated Symptoms: Body/muscle aches, Other - Neck discomfort, body aches. denies: Nonproductive cough, Fever Exacerbated by: Denies Relieved by: Denies Similar symptoms previously: Yes Recently seen / treated by doctor: No - ROS ROS below otherwise negative: Yes Systems Reviewed and Negative: Yes All other systems reviewed and negative - CONSTITUTIONAL Constitutional: DENIES: Fever - EENT Notes: Throat discomfort and neck discomfort - RESPIRATORY Respiratory: DENIES: Coughing - GASTROINTESTINAL Gastrointestinal: DENIES: Abdominal Pain, Nausea, Patient vomiting - URINARY Urinary: DENIES: Dysuria - MUSCULOSKELETAL Notes: Generalized body aches - DERM Skin Color: Normal Skin Problems: None Past Medical History - General Information source: Patient - Social History Smoking Status: Current Every Day Smoker Smoking Education Provided: Yes Frequency of alcohol use: None Drug Abuse: None Occupation: None Lives with: Family Family History: Reviewed & Not Pertinent Pulmonary Medical History: Reports: Hx COPD Neurological Medical History: Reports: Hx Migraine Renal/ Medical History: Denies: Hx Peritoneal Dialysis Psychiatric Medical History: Reports: Hx Anxiety Past Surgical History: Reports: Hx Hysterectomy, Hx Orthopedic Surgery - right arm fracture Vertical Provider Document - CONSTITUTIONAL Agree With Documented VS: Yes Exam Limitations: No Limitations General Appearance: WD/WN - INFECTION CONTROL TRAVEL OUTSIDE OF THE [place] IN LAST 30 DAYS: No - HEENT HEENT: Atraumatic, Normocephalic Notes: dry mucous membranes - NECK Neck: negative: Thyroid Normal - thyroid fullness - RESPIRATORY Respiratory: Breath Sounds Normal, No Respiratory Distress O2 Sat by Pulse Oximetry: 97 - CARDIOVASCULAR Cardiovascular: Regular Rate, Regular Rhythm, No Murmur - GI/ABDOMEN Gastrointestinal: Abdomen Soft, Abdomen Non-Tender, No Organomegaly, Normal Bowel Sounds - BACK Back: Normal Inspection. negative: CVA Tenderness-Right, CVA Tenderness-Left - MUSCULOSKELETAL/EXTREMETIES Musculoskeletal/Extremeties: GE HAWKINS - NEURO Level of Consciousness: Awake, Alert - anxious Motor/Sensory: No Motor Deficit - DERM Integumentary: Warm, Dry Course - Re-evaluation Re-evalutation: 04/21/17 19:[address] Villalba regarding patient presentation and management. Agrees with discharge plan of care. Recommends outpatient follow-up with primary doctor as well as likely referral to hematology for evaluation of polycythemia. Patient does have a history of smoking and polycythemia has been stable as compared to previous emergency visits over the past 6 months. Review of controlled substance database does demonstrate that patient has had regular prescriptions for narcotics as well as benzodiazepine drugs. Of note patient's urine drug screen is negative for either of these medications at this time. Lamine Delong did speak with patient and is in the process of helping to facilitate outpatient follow-up with the [facility]. Outpatient resources information provided to patient regarding mental health to help with her anxiety symptoms. Patient strongly encouraged to follow-up with a primary doctor as well as with a surgeon as she will likely need needle biopsy of her thyroid gland for further evaluation of enlargement. Patient presents with similar complaints that she has had over the course of several months for which she has been evaluated in the emergency department multiple times with this complaint and had benign workups. - Vital Signs Vital signs: Temp Pulse Resp BP Pulse Ox 98.7 F 78 16 134/78 H 97 04/21/17 15:16 04/21/17 15:16 04/21/17 15:16 04/21/17 15:16 04/21/17 15:16 - Laboratory Result Diagrams: 04/21/17 16:41 04/21/17 16:41 Laboratory results interpreted by me: 04/21/17 19:14 Labs- Entire Visit 04/21/17 04/21/17 04/21/17 16:36 16:36 16:41 WBC 12.4 H RBC 5.93 H Hgb 18.1 H Hct 53.5 H MCV 90 MCH 30.5 MCHC 33.8 RDW 13.9 Plt Count 278 Seg Neutrophils % 71.9 Lymphocytes % 18.5 Monocytes % 8.8 Eosinophils % 0.4 Basophils % 0.4 Absolute Neutrophils 8.9 H Absolute Lymphocytes 2.3 Absolute Monocytes 1.1 Absolute Eosinophils 0.0 Absolute Basophils 0.0 Sodium Potassium Chloride Carbon Dioxide Anion Gap BUN Creatinine Est GFR ( Amer) Est GFR (Non-Af Amer) Glucose Calcium Magnesium Total Bilirubin Direct Bilirubin Neonat Total Bilirubin Neonat Direct Bilirubin Neonat Indirect Bili AST ALT Alkaline Phosphatase Total Protein Albumin TSH Free T4 Free T3 pg/mL Urine Color STRAW Urine Appearance CLEAR Urine pH 6.0 Ur Specific [place] 1.002 Urine Protein NEGATIVE Urine Glucose (UA) NEGATIVE Urine Ketones NEGATIVE Urine Blood SMALL H Urine Nitrite NEGATIVE Urine Bilirubin NEGATIVE Urine Urobilinogen NEGATIVE Ur Leukocyte Esterase NEGATIVE Urine WBC (Auto) 0 Urine RBC (Auto) 0 Urine Bacteria (Auto) 1+ Squamous Epi Cells Auto <1 Urine Mucus (Auto) RARE Urine Ascorbic Acid NEGATIVE Urine Opiates Screen NEGATIVE Urine Methadone Screen NEGATIVE Ur Barbiturates Screen NEGATIVE Ur Phencyclidine Scrn NEGATIVE Ur Amphetamines Screen NEGATIVE U Benzodiazepines Scrn NEGATIVE Urine Cocaine Screen NEGATIVE U Marijuana (THC) Screen UNCONFIRMED POSITIVE 04/21/17 04/21/17 04/21/17 16:41 16:41 16:41 WBC RBC Hgb Hct MCV MCH MCHC RDW Plt Count Seg Neutrophils % Lymphocytes % Monocytes % Eosinophils % Basophils % Absolute Neutrophils Absolute Lymphocytes Absolute Monocytes Absolute Eosinophils Absolute Basophils Sodium 143.6 Potassium 3.3 L Chloride 105 Carbon Dioxide 25 Anion Gap 14 BUN 9 Creatinine 0.74 Est GFR ( Amer) > 60 Est GFR (Non-Af Amer) > 60 Glucose 87 Calcium 10.2 Magnesium 2.1 Total Bilirubin 0.9 Direct Bilirubin 0.4 Neonat Total Bilirubin Not Reportable Neonat Direct Bilirubin Not Reportable Neonat Indirect Bili Not Reportable AST 16 ALT 21 Alkaline Phosphatase 83 Total Protein 8.2 Albumin 4.6 TSH 0.97 Free T4 1.59 Free T3 pg/mL 4.05 Urine Color Urine Appearance Urine pH Ur Specific [place] Urine Protein Urine Glucose (UA) Urine Ketones Urine Blood Urine Nitrite Urine Bilirubin Urine Urobilinogen Ur Leukocyte Esterase Urine WBC (Auto) Urine RBC (Auto) Urine Bacteria (Auto) Squamous Epi Cells Auto Urine Mucus (Auto) Urine Ascorbic Acid Urine Opiates Screen Urine Methadone Screen Ur Barbiturates Screen Ur Phencyclidine Scrn Ur Amphetamines Screen U Benzodiazepines Scrn Urine Cocaine Screen U Marijuana (THC) Screen - Diagnostic Test Radiology reviewed: Reports reviewed Discharge - Discharge Clinical Impression: Hypokalemia, Polycythemia, Hx of smoking, Thyroid enlargement, Myalgia Condition: Stable Disposition: HOME, SELF-CARE Instructions: Growth or Mass, Pending Workup ([facility]), Hypokalemia ([facility]), Myalagia (Muscle Pain) ([facility]) Additional Instructions: Return immediately for any new or worsening symptoms Followup with your primary care provider, call tomorrow to make a followup appointment Follow-up with a primary doctor for further evaluation. You will likely need outpatient surgical follow-up for needle biopsy of your thyroid gland. Have a primary doctor recheck your electrolytes in 2 days. Your potassium was low today. Increase foods rich in potassium in your diet. Follow-up with the [facility] or the [facility] for further evaluation. Stop smoking Follow up with a rotary furnace tender (Dr Guerrero) for further evaluation of elevated hemoglobin and hematocrit Prescriptions: Potassium Chloride 10 meq PO DAILY #4 tablet.er Forms: Smoking Cessation Education Referrals: STEFANY MOSQUERA MD [Primary Care Provider] - Follow up as needed [facility] [Provider Group] - Follow up as needed [facility] [Provider Group] - 04/24/17 [facility] [Provider Group] - Follow up in 1 week SANDEEP GUERRERO MD [ACTIVE STAFF] - 04/24/17
[2017-04-21 17:10] LABS: APPEARANCE,URINE CLEAR; BILIRUBIN,URINE NEGATIVE (NEGATIVE); COLOR,URINE STRAW; GLUCOSE, URINE NEGATIVE (NEGATIVE); KETONES,URINE NEGATIVE (NEGATIVE); LEUKOCYTE ESTERASE,URINE NEGATIVE (NEGATIVE); NITRITE,URINE NEGATIVE (NEGATIVE); PROTEIN,URINE NEGATIVE (NEGATIVE); URINE SPECIFIC GRAVITY 1.002; UROBILINOGEN,URINE NEGATIVE mg/dL (<2.0)
[2017-04-21 17:12] LABS: ABSOLUTE LYMPHOCYTES (AUTO) 2.3 10^3/uL (0.5-4.7); ABSOLUTE MONOCYTES (AUTO) 1.1 10^3/uL (0.1-1.4); ABSOLUTE NEUT (AUTO) 8.9 10^3/uL (1.7-8.2); BASOPHILS % (AUTO) 0.4 % (0-2); EOSINOPHILS % (AUTO) 0.4 % (0-6); HEMATOCRIT 53.5 % (36.0-47.0); HEMOGLOBIN 18.1 g/dL (12.0-15.5); LYMPHOCYTES % (AUTO) 18.5 % (13-45); MEAN CORPUSCULAR HEMOGLOBIN 30.5 pg (27.0-33.4); MEAN CORPUSCULAR HGB CONC 33.8 g/dL (32.0-36.0); MEAN CORPUSCULAR VOLUME 90 fl (80-97); MONOCYTES % (AUTO) 8.8 % (3-13); PLATELET COUNT 278 10^3/uL (150-450); RED BLOOD COUNT 5.93 10^6/uL (3.72-5.28); RED CELL DISTRIBUTION WIDTH 13.9 % (11.5-14.0); SEGMENTED NEUTROPHILS % (AUTO) 71.9 % (42-78); TOTAL CELLS COUNTED % (AUTO) 100 %; WHITE BLOOD COUNT 12.4 10^3/uL (4.0-10.5)
[2017-04-21 17:14] LABS: URINE AMPHETAMINES SCREEN NEGATIVE; URINE BARBITURATES SCREEN NEGATIVE; URINE BENZODIAZEPINES SCREEN NEGATIVE; URINE COCAINE SCREEN NEGATIVE; URINE MARIJUANA (THC) SCREEN UNCONFIRMED POSITIVE; URINE METHADONE SCREEN NEGATIVE; URINE PHENCYCLIDINE SCREEN NEGATIVE
[2017-04-21 17:42] LABS: ALANINE AMINOTRANSFERASE 21 U/L (9-52); ALBUMIN 4.6 g/dL (3.5-5.0); ALKALINE PHOSPHATASE 83 U/L (38-126); ANION GAP 14 (5-19); ASPARTATE AMINO TRANSFERASE 16 U/L (14-36); BILIRUBIN,DIRECT 0.4 mg/dL (0.0-0.4); BILIRUBIN,TOTAL 0.9 mg/dL (0.2-1.3); BLOOD UREA NITROGEN 9 mg/dL (7-20); CALCIUM 10.2 mg/dL (8.4-10.2); CARBON DIOXIDE 25 mmol/L (22-30); CHLORIDE 105 mmol/L (98-107); GLUCOSE 87 mg/dL (75-110); POTASSIUM 3.3 mmol/L (3.6-5.0); SODIUM 143.6 mmol/L (137-145); TOTAL PROTEIN 8.2 g/dL (6.3-8.2)
--- NOTE | 2017-04-21 17:47 | RADIOLOGY REPORT (SQ) ---
EXAM DESCRIPTION: U/S THYROID/SFT TISS HD NECK COMPLETED DATE/TIME: 04/21/2017 5:35 pm REASON FOR STUDY: lower neck/thyroid swelling COMPARISON: None. TECHNIQUE: Dynamic and static braden-scale images acquired of the thyroid gland. Selected additional c olor/power Doppler images recorded. All images stored to PACS. LIMITATIONS: None. FINDINGS: RIGHT LOBE: Normal size. Heterogeneous in echotexture. No cystic or solid masses. LEFT LOBE: Normal size. Heterogeneous in echotexture. 4 x 3 x 5 mm hypoechoic nodule versus colloid cyst. ISTHMUS: Thickened. Heterogeneous echotexture No cystic or solid masses. OTHER: No other significant finding. IMPRESSION: HETEROGENEOUS THYROID GLAND WITH ENLARGEMENT OF THE ISTHMUS AND 5 MM NODULE VERSUS COLLO ID CYST WITHIN THE LEFT LOBE. NO SUSPICIOUS MASSES OR ADENOPATHY PER TECHNICAL DOCUMENTATION: JOB ID: [id number] [email or web address]- All Rights Reserved
[2017-04-21 17:56] LABS: FREE T3 4.05 pg/mL (2.77-5.27); FREE T4 (FREE THYROXINE) 1.59 ng/dL (0.78-2.19)
[2017-04-21] MEDS ORDERED: POTASSIUM CHLORIDE 10 MEQ TABLET.SA PO ONE (18:02)
[2017-04-21 18:10] LABS: THYROID STIMULATING HORMONE 0.97 uIU/mL (0.47-4.68)
[2017-04-21] MEDS ORDERED: ACETAMINOPHEN 325 MG TABLET PO ONE (18:30)
[2017-04-21 18:40] LABS: MAGNESIUM 2.1 mg/dL (1.6-2.3)
[2017-04-21 19:40] VITALS: BP 135/97
== END 2017-04-21 19:40 | disposition home or self-care (01) ==
LOC: ER 15:04
DX: E87.6 Hypokalemia (principal); D75.1 Secondary polycythemia; E04.9 Nontoxic goiter, unspecified; M79.1 Myalgia; J02.9 Acute pharyngitis, unspecified; M54.2 Cervicalgia; F17.200 Nicotine dependence, unspecified, uncomplicated
CPT/HCPCS: 99284; 96360; 36415; 87070; 84439; 87205; 83735; 84443; 85025; 87077; 80053; 81001; 87186; 80307; 84481; 76536; J7030